=== PATIENT | male | born 1960 | race Caucasian/White ===

== ENCOUNTER 2017-09-27 20:50 | Emergency (ER) | payer OTHER ==
[~2017-09-27] VITALS: Ht 175.3 cm; Wt 81.6 kg
[2017-09-27 20:54] VITALS: BP 123/72; Ht 175.3 cm; Wt 81.6 kg
== END 2017-09-27 21:04 | disposition left against medical advice (07) ==
LOC: ED 20:50
DX: Z53.21 Procedure and treatment not carried out due to patient leaving prior to being seen by health care provider (principal)